=== PATIENT | male | born 1995 | race Caucasian/White ===

== ENCOUNTER 2017-03-24 08:11 | Inpatient (IN) | payer BC, OTHER ==
[~2017-03-24] VITALS: Ht 167.6 cm; Wt 55.8 kg
[2017-03-25] MEDS ORDERED: ONDANSETRON ODT 4 MG TAB.RAPDIS SL PRN (18:30)
[2017-03-25] MEDS ORDERED: MAG HYDROX/AL HYDROX/SIMETH 30 ML LIQUID UDC PO PRN (18:30)
[2017-03-25] MEDS ORDERED: MAGNESIUM HYDROXIDE 30 ML LIQUID UDC PO PRN (18:30)
[2017-03-25] MEDS ORDERED: DICYCLOMINE HCL 20 MG TABLET PO PRN (18:30)
[2017-03-25] MEDS ORDERED: LOPERAMIDE HCL 2 MG CAPSULE PO PRN ×2 (18:30)
[2017-03-25] MEDS ORDERED: ONDANSETRON 4 MG/2 ML VIAL IM PRN (18:30)
[2017-03-25] MEDS ORDERED: METHOCARBAMOL 750 MG TABLET PO PRN (18:30)
[2017-03-25] MEDS ORDERED: ACETAMINOPHEN 325 MG TABLET PO PRN (18:30)
[2017-03-25] MEDS ORDERED: diphenhydrAMINE 50 MG CAPSULE PO PRN (18:30)
[2017-03-25] MEDS ORDERED: CLONIDINE HCL 0.1 MG TABLET PO PRN (18:30)
[2017-03-25] MEDS ORDERED: BUPRENORPHINE HCL 2 MG TAB.SUBL SL PRN (18:30)
[2017-03-25] MEDS ORDERED: MIRALAX 17 GM POWD.PACK PO PRN (18:30)
[2017-03-25 18:34] LABS: *AMPHETAMINE, URINE NEGATIVE (NEGATIVE); *BARBITURATE, URINE NEGATIVE (NEGATIVE); *CANNABINOID, URINE NEGATIVE (NEGATIVE); *COCCAINE, URINE NEGATIVE (NEGATIVE); *OPIATE, URINE POSITIVE (NEGATIVE); *PHENCYCLIDINE SCREEN,URINE NEGATIVE (NEGATIVE)
[2017-03-25 19:02] VITALS: BP 131/84
[2017-03-25 20:00] VITALS: BP 134/75
[2017-03-25] MEDS: HYDROXYZINE PAMOATE 25 MG CAPSULE PO PRN (20:42)
[2017-03-25] MEDS: IBUPROFEN 600 MG TABLET PO PRN (20:42)
[2017-03-25] MEDS ORDERED: IBUPROFEN 600 MG TABLET ONE (20:48)
[2017-03-25] MEDS ORDERED: BUPRENORPHINE HCL 2 MG TAB.SUBL SL ONE (20:48)
[2017-03-25] MEDS ORDERED: HYDROXYZINE PAMOATE 25 MG CAPSULE ONE (20:49)
[2017-03-25 21:06] LABS: BASOPHILS # (AUTO) 0.1 K/uL (0.0-8.0); BASOPHILS % (AUTO) 0.6 % (0.0-2.0); EOSINOPHILS # (AUTO) 0.6 K/uL (0.0-0.7); EOSINOPHILS % (AUTO) 5.8 % (0.0-7.0); HEMATOCRIT 47.9 % (40-50); HEMOGLOBIN 16.1 G/DL (14.0-18.0); LYMPHOCYTES # (AUTO) 1.4 K/UL (0.8-4.8); LYMPHOCYTES % (AUTO) 12.7 % (20.5-51.5); MEAN CORPUSCULAR HEMOGLOBIN 30.9 UUG (27.0-31.0); MEAN CORPUSCULAR HGB CONC 34 g/dL (32.0-37.0); MEAN CORPUSCULAR VOLUME 92.1 FL (82.0-92.0); MONOCYTES # (AUTO) 0.7 K/UL (0.1-1.30); MONOCYTES % (AUTO) 6.9 % (0.0-11.0); PLATELET COUNT (AUTO) 296 K/UL (150-450); RED CELL DISTRIBUTION WIDTH 12.1 % (11.5-14.5); WHITE BLOOD COUNT (AUTO) 10.8 K/UL (4.0-11.2)
[2017-03-25 21:32] LABS: ALANINE AMINOTRANSFERASE 15 U/L (16-63); ALBUMIN 4.4 g/dL (3.4-5.0); ALKALINE PHOSPHATASE 65 U/L (50-136); ASPARTATE AMINOTRANSFERASE 17 U/L (15-37); BILIRUBIN,TOTAL 0.4 mg/dL (0.2-1.0); CALCIUM 9.4 mg/dL (8.5-10.1); CARBON DIOXIDE 31 mmol/L (21-32); CHLORIDE 103 mmol/L (98-107); CREATININE 0.8 mg/dL (0.6-1.3); GFR 121 mL/min (>60); GLUCOSE 103 mg/dL (74-106); MAGNESIUM 1.9 mg/dL (1.8-2.4); POTASSIUM 3.7 mmol/L (3.5-5.1); SODIUM SERUM 145 mmol/L (136-145); TOTAL PROTEIN, SERUM 8.3 g/dL (6.4-8.2); UREA NITROGEN, BLOOD 6 mg/dL (7-18)
[2017-03-25 21:36] LABS: THYROID STIMULATING HORMONE 1.034 mIU/mL (0.358-3.740)
[2017-03-25 21:38] LABS: ETHANOL < 3 MG/DL (0-0)
[2017-03-25 21:43] LABS: HIV-1 p24 ANTIGEN NON REACTIVE (NONREACTIVE); HIV-1/2 ANTIBODY NON REACTIVE (NONREACTIVE)
[2017-03-26] VITALS: BP 130/70
[2017-03-26] MEDS ORDERED: florify (03:16)
[2017-03-26] MEDS ORDERED: [UNRECOGNIZED DRUG - OTHER] (03:17)
[2017-03-26] MEDS ORDERED: [UNRECOGNIZED DRUG - OTHER] (03:19)
[2017-03-26] MEDS ORDERED: NAPR550T3 PO (03:20)
[2017-03-26] MEDS ORDERED: NAPR1TAB28 PO (03:22)
[2017-03-26] MEDS ORDERED: MV M PO (03:23)
[2017-03-26] MEDS ORDERED: HYDR28CR29 TP (03:25)
[2017-03-26] MEDS ORDERED: NEOM28.36 TP (03:27)
[2017-03-26] MEDS ORDERED: [UNRECOGNIZED DRUG - OTHER] (03:29)
[2017-03-26 04:00] VITALS: BP 129/71
[2017-03-26 08:00] VITALS: BP 122/74
[2017-03-26] MEDS ORDERED: TUBERCULIN,PURIF.PROT.DERIV. 5 TU/0.1 ML TEST ID ONE (09:00)
[2017-03-26] MEDS: BUPRENORPHINE HCL 2 MG TAB.SUBL SL SCH ×4 (09:55→20:15)
[2017-03-26] MEDS: MULTIVITAMINS,THERAPEUTIC TABLET PO SCH (09:55)
[2017-03-26 12:00] VITALS: BP 120/79
[2017-03-26] MEDS ORDERED: PATIENT MAY USE OWN MED- MD OK TOP PRN (14:00)
[2017-03-26] MEDS: DICYCLOMINE HCL 20 MG TABLET PO SCH ×2 (15:30→20:15)
[2017-03-26 16:00] VITALS: BP 110/70
[2017-03-26 20:00] VITALS: BP 130/89
[2017-03-26] MEDS: GABAPENTIN 300 MG CAPSULE PO SCH (20:15)
[2017-03-26] MEDS: IBUPROFEN 600 MG TABLET PO PRN (23:14)
[2017-03-26] MEDS: HYDROXYZINE PAMOATE 25 MG CAPSULE PO PRN (23:15)
[2017-03-27] VITALS: BP 126/83
[2017-03-27 04:00] VITALS: BP 129/86
[2017-03-27 08:00] VITALS: BP 116/62
[2017-03-27] MEDS: DICYCLOMINE HCL 20 MG TABLET PO SCH ×3 (09:24→21:17)
[2017-03-27] MEDS: MULTIVITAMINS,THERAPEUTIC TABLET PO SCH (09:25)
[2017-03-27] MEDS: GABAPENTIN 300 MG CAPSULE PO SCH ×3 (09:25→21:15)
[2017-03-27] MEDS: BUPRENORPHINE HCL 2 MG TAB.SUBL SL SCH ×3 (09:25→21:12)
[2017-03-27 12:00] VITALS: BP 126/74
[2017-03-27 16:00] VITALS: BP 111/67
[2017-03-27 20:00] VITALS: BP 124/72
[2017-03-27] MEDS: CETIRIZINE HCL 10 MG TABLET PO SCH (21:17)
[2017-03-28 08:00] VITALS: BP 110/60
[2017-03-28 08:06] LABS: HCV AB <0.1 s/co ratio (0.0-0.9); HEPATITIS B CORE AB, IgM Negative (Negative); HEPATITIS B SURFACE AG Negative (Negative)
[2017-03-28] MEDS: FLUTICASONE PROP NASAL SPRAY 16 GM BOTTLE NS SCH (08:58)
[2017-03-28] MEDS: GABAPENTIN 300 MG CAPSULE PO SCH ×3 (08:59→21:16)
[2017-03-28] MEDS: MULTIVITAMINS,THERAPEUTIC TABLET PO SCH (08:59)
[2017-03-28] MEDS: DICYCLOMINE HCL 20 MG TABLET PO SCH ×3 (08:59→21:17)
[2017-03-28] MEDS ORDERED: BUPRENORPHINE HCL 2 MG TAB.SUBL SL SCH (09:00)
[2017-03-28 12:00] VITALS: BP 106/66
[2017-03-28] MEDS: BUPRENORPHINE HCL 2 MG TAB.SUBL SL SCH ×2 (14:30→21:19)
[2017-03-28] MEDS ORDERED: DICYCLOMINE HCL 20 MG TABLET PO ONE (15:00)
[2017-03-28 16:00] VITALS: BP 121/70
[2017-03-28 20:00] VITALS: BP 124/68
[2017-03-28] MEDS: CETIRIZINE HCL 10 MG TABLET PO SCH (21:15)
[2017-03-29 08:00] VITALS: BP 100/68
[2017-03-29] MEDS: FLUTICASONE PROP NASAL SPRAY 16 GM BOTTLE NS SCH (09:00)
[2017-03-29] MEDS: DICYCLOMINE HCL 20 MG TABLET PO SCH ×4 (09:01→21:12)
[2017-03-29] MEDS: MULTIVITAMINS,THERAPEUTIC TABLET PO SCH (09:01)
[2017-03-29] MEDS: BUPRENORPHINE HCL 2 MG TAB.SUBL SL SCH ×3 (09:01→21:11)
[2017-03-29] MEDS: GABAPENTIN 300 MG CAPSULE PO SCH ×3 (09:01→21:11)
[2017-03-29 13:54] VITALS: BP 100/68
[2017-03-29 17:59] VITALS: BP 107/67
[2017-03-29 20:00] VITALS: BP 121/78
[2017-03-29] MEDS: CETIRIZINE HCL 10 MG TABLET PO SCH (21:13)
[2017-03-30] MEDS: GABAPENTIN 300 MG CAPSULE PO SCH ×3 (08:49→21:15)
[2017-03-30] MEDS: DICYCLOMINE HCL 20 MG TABLET PO SCH ×4 (08:49→21:15)
[2017-03-30] MEDS: MULTIVITAMINS,THERAPEUTIC TABLET PO SCH (08:49)
[2017-03-30] MEDS: FLUTICASONE PROP NASAL SPRAY 16 GM BOTTLE NS SCH (08:50)
[2017-03-30] MEDS ORDERED: BUPRENORPHINE HCL 2 MG TAB.SUBL SL SCH (09:00)
[2017-03-30 09:12] VITALS: BP 115/52
[2017-03-30 14:08] VITALS: BP 131/72
[2017-03-30] MEDS ORDERED: DICY20TA28 PO (17:31)
[2017-03-30] MEDS ORDERED: Gabapentin PO ×2 (17:31)
[2017-03-30] MEDS ORDERED: Ibuprofen PO (17:31)
[2017-03-30] MEDS ORDERED: HYDR-3895 PO (17:31)
[2017-03-30] MEDS ORDERED: CETI-231 PO (17:31)
[2017-03-30] MEDS ORDERED: FLUT16SP NS (17:31)
[2017-03-30] MEDS ORDERED: DIPH50CA37 PO (17:31)
[2017-03-30 17:42] VITALS: BP 131/72
[2017-03-30 19:06] LABS: *AMPHETAMINE, URINE NEGATIVE (NEGATIVE); *BARBITURATE, URINE NEGATIVE (NEGATIVE); *CANNABINOID, URINE NEGATIVE (NEGATIVE); *COCCAINE, URINE NEGATIVE (NEGATIVE); *OPIATE, URINE NEGATIVE (NEGATIVE); *PHENCYCLIDINE SCREEN,URINE NEGATIVE (NEGATIVE)
[2017-03-30 20:00] VITALS: BP 132/81
[2017-03-30] MEDS: CETIRIZINE HCL 10 MG TABLET PO SCH (21:15)
[2017-03-31 03:06] LABS: *CODEINE Negative (Cutoff=300); *HYDROMORPHONE Negative (Cutoff=300); *OPIATES Positive ng/mL (Cutoff=300)
[2017-03-31 08:00] VITALS: BP 140/99
[2017-03-31] MEDS: MULTIVITAMINS,THERAPEUTIC TABLET PO SCH (08:57)
[2017-03-31] MEDS: FLUTICASONE PROP NASAL SPRAY 16 GM BOTTLE NS SCH (08:57)
[2017-03-31] MEDS: DICYCLOMINE HCL 20 MG TABLET PO SCH (08:57)
[2017-03-31] MEDS: GABAPENTIN 300 MG CAPSULE PO SCH (08:57)
== END 2017-03-31 09:30 | disposition other institution (70) | DRG 895 ==
LOC: SRC 03-25 17:37
PROVIDERS: ADMIT Internal Medicine; ATTEND Internal Medicine
PROC: HZ2ZZZZ Detoxification Services for Substance Abuse Treatment (ICD-10-PCS; principal; 2017-03-25)
PROC: HZ41ZZZ Group Counseling for Substance Abuse Treatment, Behavioral (ICD-10-PCS; 2017-03-26)
PROC: HZ31ZZZ Individual Counseling for Substance Abuse Treatment, Behavioral (ICD-10-PCS; 2017-03-28)
DX: F11.23 Opioid dependence with withdrawal (principal); Z88.0 Allergy status to penicillin; J30.2 Other seasonal allergic rhinitis; Z82.49 Family history of ischemic heart disease and other diseases of the circulatory system; Z72.0 Tobacco use; F12.10 Cannabis abuse, uncomplicated; F41.9 Anxiety disorder, unspecified; G89.29 Other chronic pain; R10.9 Unspecified abdominal pain
CPT/HCPCS: 36415; 70030-TC; 80307; 80361; 83735; 84443; 85025; 86580; 86592; 86705; 86803; 87340; 87806; G6040-TC; J3535; Q0163